=== PATIENT | male | born 1990 | race Caucasian/White ===

== ENCOUNTER 2020-12-30 16:13 | Emergency (ER) | payer OTHER ==
[~2020-12-30] VITALS: Ht 177.8 cm; Wt 63.5 kg
[2020-12-30 16:39] LABS: BASOPHILS ABSOLUTE AUTO 0.03 K/mm3 (0.00-0.23); BASOPHILS PERCENT AUTO 0 % (0-2); EOSINOPHILS ABSOLUTE AUTO 0.26 K/mm3 (0.00-0.68); EOSINOPHILS PERCENT AUTO 3 % (0-6); Hematocrit 44.4 % (37.0-53.0); Hemoglobin 15.5 g/dL (13.5-17.5); IMMATURE GRAN ABSOLUTE AUTO 0.03 K/mm3 (0.00-0.10); IMMATURE GRAN PERCENT AUTO 0 % (0-1); LYMPHOCYTES ABSOLUTE AUTO 3.01 K/mm3 (0.84-5.20); LYMPHOCYTES PERCENT AUTO 31 % (21-46); MONOCYTES ABSOLUTE AUTO 0.47 K/mm3 (0.16-1.47); MONOCYTES PERCENT AUTO 5 % (4-13); Mean Corpuscular HGB 33.4 pg (26.0-34.0); Mean Corpuscular HGB Conc 34.9 g/dL (31.5-36.5); Mean Corpuscular Volume 96 fL (80-100); Mean Platelet Volume 9.9 fL (9.1-12.4); NEUTROPHILS ABSOLUTE AUTO 6.06 K/mm3 (1.96-9.15); NEUTROPHILS PERCENT AUTO 62 % (41-73); Platelet Count 240 K/mm3 (150-400); RDW Coefficient Variation 12.4 % (11.7-14.2); RDW Standard Deviation 43.5 fL (35.1-46.3); Red Blood Cell Count 4.64 M/mm3 (4.30-5.90); White Blood Cell Count 9.86 K/mm3 (4.00-11.30)
[2020-12-30 16:49] LABS: International Normalized Ratio 0.97; Prothrombin Time Results 10.4 Sec (9.7-11.5)
[2020-12-30 17:12] LABS: Alanine Aminotransfer (ALT/SGP 28 U/L (12-78); Albumin, Blood 4.1 g/dL (3.4-5.0); Albumin/Globulin Ratio 1.5 (0.8-1.8); Alk Phos 83 U/L (50-136); Anion Gap 6 mmol/L (6-16); Aspartate Aminotrans (AST/SGOT 25 U/L (12-37); Bilirubin, Total 0.3 mg/dL (0.1-1.0); Blood Urea Nitrogen 9 mg/dL (8-24); Bun/Creatinine Ratio 11.8 (12.0-20.0); CO2, Blood 26 mmol/L (21-32); Calcium, Blood 8.1 mg/dL (8.5-10.1); Chloride, Blood 108 mmol/L (98-108); Creatinine, Blood 0.76 mg/dL (0.60-1.20); Ethanol (Alcohol), Blood, Med 257 mg/dL; Globulin, Blood 2.8 g/dL (2.2-4.0); Glomerular Filtration Rate >60 (60-); Glucose, Blood 88 mg/dL (70-99); Potassium, Blood 3.9 mmol/L (3.5-5.5); Sodium, Blood 140 mmol/L (136-145); Total Protein, Blood 6.9 g/dL (6.4-8.2)
== END 2020-12-30 19:18 | disposition home or self-care (01) ==
LOC: ER 16:13
PROVIDERS: Emergency Medicine
DX: S63.501A Unspecified sprain of right wrist, initial encounter (principal); F10.129 Alcohol abuse with intoxication, unspecified; S00.81XA Abrasion of other part of head, initial encounter; S60.512A Abrasion of left hand, initial encounter; S60.511A Abrasion of right hand, initial encounter; V28.4XXA Motorcycle driver injured in noncollision transport accident in traffic accident, initial encounter; Y92.410 Unspecified street and highway as the place of occurrence of the external cause
CPT/HCPCS: 70450; 71260; 72125; 73130; 74177; 80053; 83690; 85025; 85610; 86850; 86900; 86901; 93005; 93010; 96374-59; 96375; 99285-25; G0480; J1885; J3010; J7030; Q9967

== ENCOUNTER 2022-07-18 05:16 | Emergency (ER) | payer OTHER ==
[~2022-07-18] VITALS: Ht 167.6 cm; Wt 68.0 kg
[2022-07-18 07:01] LABS: BASOPHILS ABSOLUTE AUTO 0.04 K/mm3 (0.00-0.23); BASOPHILS PERCENT AUTO 1 % (0-2); EOSINOPHILS ABSOLUTE AUTO 0.26 K/mm3 (0.00-0.68); EOSINOPHILS PERCENT AUTO 3 % (0-6); Hemoglobin 15.7 g/dL (13.5-17.5); IMMATURE GRAN ABSOLUTE AUTO 0.02 K/mm3 (0.00-0.10); IMMATURE GRAN PERCENT AUTO 0 % (0-1); LYMPHOCYTES ABSOLUTE AUTO 2.25 K/mm3 (0.84-5.20); LYMPHOCYTES PERCENT AUTO 26 % (21-46); MONOCYTES ABSOLUTE AUTO 0.62 K/mm3 (0.16-1.47); MONOCYTES PERCENT AUTO 7 % (4-13); Mean Corpuscular HGB 33.7 pg (26.0-34.0); Mean Corpuscular HGB Conc 35.7 g/dL (31.5-36.5); Mean Corpuscular Volume 94 fL (80-100); Mean Platelet Volume 10.1 fL (9.1-12.4); NEUTROPHILS ABSOLUTE AUTO 5.47 K/mm3 (1.96-9.15); NEUTROPHILS PERCENT AUTO 63 % (41-73); Platelet Count 218 K/mm3 (150-400); RDW Coefficient Variation 12.2 % (11.7-14.2); RDW Standard Deviation 42.4 fL (35.1-46.3); Red Blood Cell Count 4.66 M/mm3 (4.30-5.90); White Blood Cell Count 8.66 K/mm3 (4.00-11.30)
[2022-07-18 07:26] LABS: Albumin/Globulin Ratio 1.5 (0.8-1.8); Bilirubin, Total 0.3 mg/dL (0.1-1.0); Bun/Creatinine Ratio 13.2 (12.0-20.0); Calcium, Blood 8.8 mg/dL (8.5-10.1); Creatinine, Blood 0.76 mg/dL (0.60-1.20); Globulin, Blood 2.7 g/dL (2.2-4.0); Magnesium, Blood 1.9 mg/dL (1.6-2.4); Potassium, Blood 3.7 mmol/L (3.5-5.5); Total Protein, Blood 6.7 g/dL (6.4-8.2)
== END 2022-07-18 11:53 | disposition home or self-care (01) ==
LOC: ER 05:16
PROVIDERS: Student in an Organized Health Care Education/Training Program
DX: R55 Syncope and collapse (principal); F17.210 Nicotine dependence, cigarettes, uncomplicated
CPT/HCPCS: 71046; 80053; 83735; 83880; 84484; 85025; 93005; 93010; J7030

== ENCOUNTER 2024-03-16 01:25 | Inpatient (IN) | payer OTHER ==
[2024-03-16] VITALS (36 sets, daily range): BP systolic 104–146; BP diastolic 65–99
[~2024-03-16] VITALS: Ht 175.3 cm; Wt 63.5 kg
[2024-03-16] MEDS ORDERED: propofoL 100 ML IV SCH (01:40)
[2024-03-16] MEDS ORDERED: NS 1,000 ML IV SCH ×2 (01:40→04:00)
[2024-03-16 01:43] LABS: BASOPHILS ABSOLUTE AUTO 0.01 K/mm3 (0.00-0.23); BASOPHILS PERCENT AUTO 0 % (0-2); EOSINOPHILS PERCENT AUTO 1 % (0-6); Hematocrit 44.4 % (37.0-53.0); Hemoglobin 15.7 g/dL (13.5-17.5); IMMATURE GRAN ABSOLUTE AUTO 0.08 K/mm3 (0.00-0.10); IMMATURE GRAN PERCENT AUTO 1 % (0-1); LYMPHOCYTES ABSOLUTE AUTO 1.87 K/mm3 (0.84-5.20); LYMPHOCYTES PERCENT AUTO 19 % (21-46); MONOCYTES ABSOLUTE AUTO 0.37 K/mm3 (0.16-1.47); MONOCYTES PERCENT AUTO 4 % (4-13); Mean Corpuscular HGB 34.1 pg (26.0-34.0); Mean Corpuscular HGB Conc 35.4 g/dL (31.5-36.5); Mean Corpuscular Volume 96 fL (80-100); Mean Platelet Volume 10.3 fL (9.1-12.4); NEUTROPHILS PERCENT AUTO 75 % (41-73); Platelet Count 199 K/mm3 (150-400); RDW Standard Deviation 42.5 fL (35.1-46.3); Red Blood Cell Count 4.61 M/mm3 (4.30-5.90); White Blood Cell Count 9.63 K/mm3 (4.00-11.30)
[2024-03-16 01:59] LABS: International Normalized Ratio 0.95; Prothrombin Time Results 10.2 Sec (9.7-11.5)
[2024-03-16 02:01] LABS: Albumin, Blood 3.7 g/dL (3.4-5.0); Albumin/Globulin Ratio 1.3 (0.8-1.8); Bilirubin, Total 0.5 mg/dL (0.1-1.0); Bun/Creatinine Ratio 12.4 (12.0-20.0); Calcium, Blood 8.4 mg/dL (8.5-10.1); Creatinine, Blood 0.73 mg/dL (0.60-1.20); Globulin, Blood 2.9 g/dL (2.2-4.0); Potassium, Blood 3.5 mmol/L (3.5-5.5); Total Protein, Blood 6.6 g/dL (6.4-8.2)
[2024-03-16] MEDS ORDERED: FentaNYL Citrate 50 MCG/ML 2 ML Injection IV ONE (02:50)
[2024-03-16 02:52] LABS: U Amphetamine Screen Not Detected; U Barbituate Screen Not Detected; U Benzodiazapine Screen Not Detected; U Buprenorphine Screen Not Detected; U Cannabinoids Screen DETECTED; U Cocaine Screen Not Detected; U Methadone Screen Not Detected; U Methamphetamine Screen Not Detected; U Opiates Screen Not Detected; U Oxycodone Screen Not Detected; U Phencyclidine Screen Not Detected
[2024-03-16] MEDS ORDERED: Lactated Ringer's 1,000 ML IV SCH (03:40)
[2024-03-16] MEDS ORDERED: HYDROmorphone HCl/Pf 1MG SYR IV PRN (03:40)
[2024-03-16] MEDS ORDERED: Midazolam HCl 1MG / ML 2ML Vial IV PRN (03:50)
[2024-03-16] MEDS ORDERED: propofoL 100 ML IV PRN (03:55)
[2024-03-16 05:01] LABS: Albumin, Blood 3.4 g/dL (3.4-5.0); Albumin/Globulin Ratio 1.4 (0.8-1.8); Bilirubin, Total 0.6 mg/dL (0.1-1.0); Bun/Creatinine Ratio 14.4 (12.0-20.0); Calcium, Blood 7.9 mg/dL (8.5-10.1); Creatinine, Blood 0.7 mg/dL (0.60-1.20); Globulin, Blood 2.4 g/dL (2.2-4.0); Potassium, Blood 3.3 mmol/L (3.5-5.5); Total Protein, Blood 5.8 g/dL (6.4-8.2)
[2024-03-16 05:24] LABS: Source, Urine Foley catheter
[2024-03-16 05:34] LABS: BASOPHILS ABSOLUTE AUTO 0.04 K/mm3 (0.00-0.23); BASOPHILS PERCENT AUTO 0 % (0-2); EOSINOPHILS ABSOLUTE AUTO 0.07 K/mm3 (0.00-0.68); EOSINOPHILS PERCENT AUTO 1 % (0-6); Hematocrit 42.2 % (37.0-53.0); Hemoglobin 15.1 g/dL (13.5-17.5); IMMATURE GRAN ABSOLUTE AUTO 0.11 K/mm3 (0.00-0.10); IMMATURE GRAN PERCENT AUTO 1 % (0-1); LYMPHOCYTES ABSOLUTE AUTO 1.79 K/mm3 (0.84-5.20); LYMPHOCYTES PERCENT AUTO 13 % (21-46); MONOCYTES ABSOLUTE AUTO 0.72 K/mm3 (0.16-1.47); MONOCYTES PERCENT AUTO 5 % (4-13); Mean Corpuscular HGB 34.5 pg (26.0-34.0); Mean Corpuscular HGB Conc 35.8 g/dL (31.5-36.5); Mean Corpuscular Volume 96 fL (80-100); NEUTROPHILS ABSOLUTE AUTO 11.55 K/mm3 (1.96-9.15); NEUTROPHILS PERCENT AUTO 81 % (41-73); RDW Standard Deviation 42.1 fL (35.1-46.3); Red Blood Cell Count 4.38 M/mm3 (4.30-5.90); White Blood Cell Count 14.28 K/mm3 (4.00-11.30)
[2024-03-16 05:38] LABS: Appearance, Urine Hazy (Clear); Bilirubin, Urine Neg (Neg); Blood, Urine 5+ (Neg); Color, Urine Yellow (P-Yellow); Glucose Qualitative, Urine Neg (Neg); Ketones, Urine Neg (Neg); Leukocyte Esterase, Urine Neg (Neg); Nitrite, Urine Neg (Neg); Protein, Urine 2+ (Neg); Urobilinogen, Urine 1+ (Normal)
[2024-03-16 05:39] LABS: Mean Platelet Volume 10.7 fL (9.1-12.4)
[2024-03-16 05:53] LABS: Platelet Count 188 K/mm3 (150-400)
--- NOTE | 2024-03-16 06:01 | NUR ---
ER ADMIT TO ICU 2: PT ADMITTED TO THE UNIT INTUBATED AND SEDATED WITH VENT SETTINGS AC/VC 14/500/5/35%, AND PROPOFOL GTT @ 40 MCG/KG/MIN. PT IS RESPONSIVE TO PAIN STIMULI, ATTEMPTS TO OPEN EYES WHEN ASKS, AND DOES NOT FOLLOW DIRECTIONS AT THIS TIME. PT LUNG SOUNDS ARE CLEAR T/O, SPO2 98<. PT SR ON MONITOR WITH HR 60-70'S, SBP 100-110. HYPOACTIVE BOWEL TONES NOTED, ABD SOFT, AND NON-TENDER. PT HAD TEMP NEGRON PLACED IN ER; NEGRON PATENT AND DRAINING TO GRAVITY WITH VERONICA URINE OUTPUT. PT AFEBRILE, COOL. WOUNDS DOCUMENTED WITH PHOTOS IN THE CHART; BOBBY CALLED AND NOTIFIED. PT FAMILY MEMBERS WENT HOME FROM ER AFTER PT TRANSFERRED TO UNIT. 18 LAC, 18 RAC PATENT; NS @ 75 MLS/HR.
[2024-03-16 06:04] LABS: Bacteria Mod /hpf; Red Blood Cells, Urine 50-100 /hpf (0-2); Squamous Epithelial Cells Few /hpf (Few); White Blood Cells, Urine 0-2 /hpf (0-5)
[2024-03-16] MEDS ORDERED: Cetylpyridinium Chloride 1 EA MISC MT SCH (08:00)
--- NOTE | 2024-03-16 08:18 | NUR ---
AM NOTE... ASSUMED CARE OF PT AT 0700, PT IS INTUBATED AND SEDATED ON PROPOFOL AT 40CMG/KG/MIN, PT RESPONDS TO NOXIOUS STIMULI AND WILL OPEN EYES TO COMMAND BUT NOT FOLLOW OTHER DIRECTIONS. VENT SETTINGS ARE AC/VC: 14/500/5/30% WITH O2 SATS>90% L/S CLEAR W/SCATTERED WHEEZES IN THE UPPER LOBES. BT PRESENT AND HYPOACTIVE, OG TUBE CLAMPED. NEGRON IS PATENT AND DRAINING TO GRAVITY. WILL CONTINUE TO MONITOR.
[2024-03-16] MEDS ORDERED: Potassium Chloride 40 MEQ in NS 250 ML IV ONE (08:50)
[2024-03-16] MEDS ORDERED: Pantoprazole Sodium 40 MG Injection IV SCH (09:00)
[2024-03-16] MEDS ORDERED: Enoxaparin 40 MG/0.4 ML SYR SC SCH (09:00)
[2024-03-16] MEDS ORDERED: Hydrogen Peroxide 1.5 % Solution MT SCH (12:00)
--- NOTE | 2024-03-16 17:43 | NUR ---
SHIFT SUMMARY.... PT HAS BECOME FEBRILE WITH TMAX OF 101.0, PT'S OTHE VS HAVE BEEN STABLE T/O THIS SHIFT. HE CONTINUES TO BE IN SB/SR 50'S-70'S, BP STABLE WITH SBPs 120'S-130'S. SEDATION VACATION DONE WHILE THE PT'S BROTHER AND DAUGHTER WERE AT THE BEDSIDE, PT WAS FOLLOWING COMMANDS WHILE HIS BROTHER AND DAUGHTER WERE IN THE ROOM BUT STOPPED WHEN THEY LEFT. PT BECAME VERY AGIGATED AND WAS RESEDATED WHEN HIS FAMILY LEFT. PT HAS NOT HAD A BM THIS SHIFT. NEGRON IS PATENT AND DRAINING TO GRAVITY. WILL CONTINUE TO MONITOR UNTIL REPORT IS GIVEN TO ONCOMING RN.
[2024-03-17] VITALS (19 sets, daily range): BP systolic 118–163; BP diastolic 72–106
--- NOTE | 2024-03-17 05:08 | NUR ---
SHIFT SUMMARY: NO ACUTE CHANGES OVERNIGHT; VSS THROUHGOUT THE SHIFT. PT REMAINS INTUBATED AND SEDATED WITH VENT SETTINGS AC/VC 14/500/5/30% AND PROPOFOL GTT @ 55 MCG/KH/MIN. PT RESPONSIVE TO PAIN STIMULI, WEBSTER AND IS NOT FOLLOWING COMMANDS AT THIS TIME. LUNG SOUNDS ARE CLEAR THROUGHOUT, SPO2 98<. PT HAS BE SB ON MONITOR WITH HR 50'S AND SBP 130'S. PT OGT PATENT, LIS. NEGRON PATENT AND DRAINING TO GRAVITY; TEA COLORED URINE NOTED.
[2024-03-17] MEDS ORDERED: Potassium Chloride 40 MEQ in NS 250 ML IV ONE (07:10)
[2024-03-17 07:35] LABS: Hematocrit 42.7 % (37.0-53.0); Hemoglobin 14.8 g/dL (13.5-17.5); Mean Corpuscular HGB 34.1 pg (26.0-34.0); Mean Corpuscular HGB Conc 34.7 g/dL (31.5-36.5); Mean Corpuscular Volume 98 fL (80-100); Mean Platelet Volume 10.7 fL (9.1-12.4); Platelet Count 172 K/mm3 (150-400); RDW Standard Deviation 43.9 fL (35.1-46.3); Red Blood Cell Count 4.34 M/mm3 (4.30-5.90); White Blood Cell Count 11.23 K/mm3 (4.00-11.30)
[2024-03-17 08:16] LABS: Albumin/Globulin Ratio 1.2 (0.8-1.8); Bilirubin, Total 0.8 mg/dL (0.1-1.0); Bun/Creatinine Ratio 12.1 (12.0-20.0); Calcium, Blood 8.1 mg/dL (8.5-10.1); Creatinine, Blood 0.58 mg/dL (0.60-1.20); Globulin, Blood 2.5 g/dL (2.2-4.0); Potassium, Blood 3.8 mmol/L (3.5-5.5); Total Protein, Blood 5.5 g/dL (6.4-8.2)
[2024-03-17] MEDS ORDERED: Midazolam HCL 50 MG in NS 40 ML IV PRN (09:20)
[2024-03-17 09:47] LABS: PCO2 Venous 40.4 mmHg (38-42); pH Blood Venous 7.35 (7.34-7.37)
[2024-03-17 09:48] LABS: Base Excess Venous -3.6 mmol/L; Bicarbonate Venous 21.2 mmol/L (24.0-30.0)
--- NOTE | 2024-03-17 09:54 | NUR ---
AM NOTE.. ASSUMED CARE OF PATIENT AT 0700. PATIENT IS INTUBATED AND SEDATED. PROPOFOL AT 65 MCG/KG/MIN. VENTIALTOR SETTINGS ARE AC/VC 14/500/5/30 WITH 02 SATS > 95%. LUNG SOUNDS RHONCI THROUGHOUT. INCREASED SECRECTIONS WITH TRACHEAL SUCTIONING; THICK, COPIOUS, AND YELLOW. PATIENT IS IN SINUS RHYTHM, HR IN 70'S, BP IS STABLE. NO EDEMA PRESENT AT TIME OF ASSESSMENT. OG TUBE IS CLAMPED. BOWEL TONES ARE PRESENT AND HYPOACTIVE. ABDOMEN IS SOFT TO PALPATION. PATIENT HAD A LIQUID BOWEL MOVEMENT THIS MORNING. TEMP NEGRON IS PATENT AND DRAINING VERONICA URINE TO GRAVITY, TEMP IS 98.5. AT 0900 DR. GAXIOLA AT BEDSIDE, NEW ORDERS FOR VERSED DRIP.
--- NOTE | 2024-03-17 10:01 | NUR ---
AM NOTE... ASSUMED CARE OF PT AT 0700. PT IS STILL INTUBATED AND SEDATED, PROPOFOL IS RUNNING AT 65MCG/KG/MIN WITH RASS OF -2 WITH NO SITMULIATION RASS IS +3 WITH THE SLIGHTEST STIMULIATION. VENT SETTINGS ARE AC/VC: 14/500/5/30% WITH O2 SATS>95%. PT IS IN SR IN THE 60'S BP IS STABLE. NO EDEMA NOTED ON THIS ASSESSMENT. L/S RHONCHI T/O, SECRETIONS HAVE INCREASED FROM YESTERDAY, CURRENT SECRETIONS ARE COPIOUS, THICK AND YELLOW. OG TUBE IS CLAMPED. BT PRESENT AND HYPOACTIVE, ABD SOFT TO PALPATION. ATTENDS IN PLACE, PT HAD A LIQUID BROWN STOOL THIS AM. CURRENT ATTENDS ARE C/D/I. TEMP NEGRON IS PATENT AND DRAINING DARK VERONICA/ALMOST GREEN URINE TO GRAVITY. TEMP IS 98.5. APROX 0900 DR. BOJORQUEZ AT THE BEDSIDE TO ASSESS THE PT, NEW ORDERS FOR VERSED DIRP GIVEN WITH INTENT TO DECREASE THE PROPOFOL DRIP. WILL CONTINUE TO MONITOR.
[2024-03-17 10:09] LABS: Beta-hydroxybutyrate 21.3 mg/dL (0.2-2.8); Magnesium, Blood 1.7 mg/dL (1.6-2.4); Phosphorus, Blood 3.4 mg/dL (2.5-4.9)
[2024-03-17] MEDS ORDERED: NS 250 ML IV PRN (10:30)
[2024-03-17] MEDS ORDERED: Thiamine HCl 250 MG in NS 100 ML IV SCH (12:00)
--- NOTE | 2024-03-17 14:18 | NUR ---
PT EXTUBATION.... PT WAS EXTUBATED AT 1402 TO 2L NC WITH O2 SATS>95%. VS STABLE DURING THIS EVENT. PT IS A&Ox4 ABLE TO FOLLOW COMMANDS AND RECOGNIZE HIS FAMILY WHO WAS AT THE BEDSIDE. PT IS ABLE TO MOVE ALL EXTREMITIES EQUALLY. WILL CONTINUE TO MONITOR.
[2024-03-17] MEDS ORDERED: D5W-1/2NS KCl 20mEq 1,000 ML IV SCH (15:00)
[2024-03-17] MEDS ORDERED: D5W-1/2NS 1,000 ML IV SCH (15:00)
[2024-03-17] MEDS ORDERED: Magnesium Sulf 2 GM/Water 50ML 50 ML IV ONE (15:10)
[2024-03-17] MEDS ORDERED: Azithromycin 500 MG in NS 250 ML IV ONE (15:15)
[2024-03-17] MEDS ORDERED: Ketorolac Tromethamine 15mg Vial IV PRN (15:20)
[2024-03-17] MEDS ORDERED: Ampicillin Sod/Sulbactam Sod 3 GM in NS 100 ML IV SCH (16:00)
[2024-03-17 17:08] LABS: Bun/Creatinine Ratio 11.8 (12.0-20.0); Calcium, Blood 8.2 mg/dL (8.5-10.1); Creatinine, Blood 0.59 mg/dL (0.60-1.20); Phosphorus, Blood 3.6 mg/dL (2.5-4.9); Potassium, Blood 3.7 mmol/L (3.5-5.5)
--- NOTE | 2024-03-17 17:12 | NUR ---
VERSED WASTE 30 ML VERSED WASTED WITH ZHOU COLEY.
--- NOTE | 2024-03-17 17:52 | NUR ---
SHIFT SUMMARY.... NO ACUTE NEGATIVE CHANGES NOTED THIS SHIFT. PT WAS EXTUBATED AT 1402 TO 2L NC WHICH WAS TITRATED DOWN TO RA WITH O2 SATS>90%. PT C/O OF SEVERE PAIN BUT FALLS ASLEEP WHEN NOT STIMULATED. PT HAS HAD MULIPLE FAMILY MEMBERS AND FRIENDS AT THE BEDSIDE ALL DAY. PT'S VS STABLE. CALL LIGHT IN REACH. WILL CONITNUE TO MONITOR UNTIL REPORT IS GIVEN TO ONCOMING RN.
--- NOTE | 2024-03-17 19:21 | NUR ---
ASSUMED CARE OF PATIENT AT 1900. REPORT RECIEVED FROM THELMA, RN AND STUDENT NURSE JUANITA. PT RESTING IN BEDSIDE CHAIR, ON ROOM AIR WITH O2 SATURATION OF 96%, TALKING ON HIS PHONE. D5 1/2NS WITH KCL INFUSING. VSS AND NO ACUTE NEEDS IDENTIFED AT THIS TIME. SEE SHIFT ASSESSMENT FOR FULL DETAILS.
[2024-03-17] MEDS ORDERED: Nicotine Polacrilex 2 MG Gum PO PRN (19:40)
[2024-03-17 21:07] LABS: Bun/Creatinine Ratio 10.2 (12.0-20.0); Creatinine, Blood 0.59 mg/dL (0.60-1.20); Phosphorus, Blood 3.1 mg/dL (2.5-4.9); Potassium, Blood 3.8 mmol/L (3.5-5.5)
[2024-03-18] VITALS (10 sets, daily range): BP systolic 117–147; BP diastolic 66–87
[2024-03-18 03:43] LABS: Bun/Creatinine Ratio 12.2 (12.0-20.0); Calcium, Blood 8.1 mg/dL (8.5-10.1); Creatinine, Blood 0.58 mg/dL (0.60-1.20); Magnesium, Blood 1.9 mg/dL (1.6-2.4); Potassium, Blood 3.8 mmol/L (3.5-5.5)
--- NOTE | 2024-03-18 06:03 | NUR ---
SHIFT SUMMARY PT SLEPT THROUGHOUT MAJORITY OF SHIFT. REMAINED A&0 X 4 T/O ENTIRETY OF SHIFT. AFEBRILE. REPORTED PAIN "ALL OVER". UTILIZED HEATING PAD AND REPOSITIONING WITH GOOD BENEFIT. ABLE TO FOLLOW COMMANDS, MAKE PURPOSEFUL MOVEMENTS, AND MAKE NEEDS KNOWN. CONTINOUS CARDIAC MONITORING IN PLACE SHOWING SINUS ALENA WITH HR IN 50'S. BP STABLE. ON ROOM AIR WITH O2 SATURATIONS > 93%. NPO. NO BM THIS SHIFT. UTILIZES BEDSIDE URINAL. CALL LIGHT IN REACH. WILL CONTINUE TO MONITOR AND REPORT TO ONCOMING RN.
--- NOTE | 2024-03-18 08:04 | NUR ---
SHIFT ASSESSMENT PT A&OX4, SITTING IN BEDSIDE CHAIR. C/O MODERATE GENERALIZED PAIN, MEDICATED THIS AM BY NOC NURSE WITH PRN TORADOL. STATES BACK IS ALSO SORE BUT HAS CHRONIC DISCOMFORT IN BACK. OTHERWISE NO OTHER COMPLAINTS. AMBULATES WITH SBA. PT STATES MULTIPLE TIMES "I'M GOING HOME TODAY". DR. AMAYA IN ROOM WITH PATIENT, PLAN TO D/C TODAY.
[2024-03-18] MEDS ORDERED: VISBIOME 112.51 EACH PO (09:20)
[2024-03-18] MEDS ORDERED: AMOCLA875 PO (09:21)
[2024-03-18] MEDS ORDERED: NICO21TP TOP (09:21)
--- NOTE | 2024-03-18 10:57 | NUR ---
DISCHARGE PT DISCHARGED TO HOME WITH PTS BROTHER. BELONGINGS GIVEN BACK TO PATIENT. PT AMBULATORY WITHOUT ASSISTANCE. PRESCRIPTIONS FAXED AND CALLED TO CONFIRM RECEIVAL TO [facility].
[2024-03-18] MEDS ORDERED: Azithromycin 250 MG in NS 250 ML IV SCH (16:00)
== END 2024-03-18 10:45 | disposition home or self-care (01) | DRG 208 ==
LOC: ER 01:25 → ICUE 01:26
PROVIDERS: Internal Medicine; Student in an Organized Health Care Education/Training Program; ADMIT Surgery
PROC: 5A1945Z Respiratory Ventilation, 24-96 Consecutive Hours (ICD-10-PCS; principal; 2024-03-16)
DX: J96.00 Acute respiratory failure, unspecified whether with hypoxia or hypercapnia (principal); J69.0 Pneumonitis due to inhalation of food and vomit; E87.29 Other acidosis; F10.129 Alcohol abuse with intoxication, unspecified; F17.200 Nicotine dependence, unspecified, uncomplicated; Y90.8 Blood alcohol level of 240 mg/100 ml or more; Z78.1 Physical restraint status
CPT/HCPCS: 36415; 51702; 70450; 71045; 71260; 72125; 74177; 80048; 80053; 81001; 82010; 82803; 82947; 83605; 83735; 84100; 85025; 85027; 85610; 87070; 87077; 87185; 87205; 93005; 93010; 94002; 94003; 94762; A9270; C9113; J0295; J0456; J1650; J1885; J2250; J2704; J3010; J3411; J3475; J3480; J7030; J7050; Q9967